=== PATIENT | female | born 1970 | race Caucasian/White ===

== ENCOUNTER 2021-07-17 15:17 | Day surgery (SDC) | payer MEDICARE ==
[2021-07-17] MEDS ORDERED: Depo-Medrol 40 MG/ML IM ONE (15:18)
[2021-07-17] MEDS ORDERED: LIDOCAINE HCL 2% 100 MG/5 ML IJ ONE (15:18)
[2021-07-17] MEDS ORDERED: Lactated Ringers 1,000 ML IV ONE (15:52)
[2021-07-17] MEDS ORDERED: DIPRIVAN 200 MG/20 ML IV ONE (16:36)
[2021-07-17] MEDS ORDERED: Ketamine HCl 50 MG/ML ONE (16:36)
[2021-07-17] MEDS ORDERED: MORPHINE SULFATE 2 MG INJ ONE (16:54)
--- NOTE | 2021-07-17 17:19 | XRAY ---
Indication: Bilateral L4-S1 MBB. Interpreted fluoroscopy provided for 15 seconds. Single digital spot image submitted for interpretation demonstrates posterior needle tips projecting over the expected left and right L4-S1 nerve roots. Correlate with intraoperative findings/report.
--- NOTE | 2021-07-17 17:21 | XRAY ---
15 seconds of fluoroscopy was used in surgery for a bilateral L4-S1 MBB.
== END 2021-07-17 17:07 | disposition home or self-care (01) ==
LOC: SDC-PAIN 15:17
PROVIDERS: ATTEND Psychiatry & Neurology Pain Medicine
DX: M47.816 Spondylosis without myelopathy or radiculopathy, lumbar region (principal); E11.9 Type 2 diabetes mellitus without complications; Z79.899 Other long term (current) drug therapy
CPT/HCPCS: 36415; 64493; 64494; 72020; 77002; 82947; 84702; J1030; J2270; J2704

== ENCOUNTER 2021-08-14 10:30 | Day surgery (SDC) | payer MEDICARE ==
[2021-08-14] MEDS ORDERED: Depo-Medrol 40 MG/ML IM ONE (10:31)
[2021-08-14] MEDS ORDERED: BUPIVACAINE 0.5% VIAL IJ ONE (10:31)
[2021-08-14] MEDS ORDERED: DIPRIVAN 200 MG/20 ML IV ONE (11:20)
[2021-08-14] MEDS ORDERED: Ketamine HCl 50 MG/ML ONE (12:25)
[2021-08-14] MEDS ORDERED: Lactated Ringers 1,000 ML IV ONE (16:13)
--- NOTE | 2021-08-15 11:20 | XRAY ---
17 seconds fluoroscopy time in surgery for intra-articular injection of the left knee.
--- NOTE | 2021-08-15 11:29 | XRAY ---
9 seconds fluoroscopy time in surgery for intra-articular injection of the right knee.
--- NOTE | 2021-08-15 12:13 | XRAY ---
Indication: Intra-articular right knee injection. Intra-operative fluoroscopy was provided for 9 seconds. A single digital spot image was submitted for interpretation demonstrates a needle tip projected over the right femur intercondylar notch. 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 A small amount of contrast has been injected for needle tip placement. Correlate with intraoperative findings/report.
--- NOTE | 2021-08-15 12:15 | XRAY ---
Indication: Intra-articular left knee injection. Intra-operative fluoroscopy was provided for 17 seconds. A single digital spot image was submitted for interpretation demonstrates a needle tip projected over the left femur intercondylar notch. There is a left total knee replacement. A small amount of contrast has been injected for needle tip placement. Correlate with intraoperative findings/report.
== END 2021-08-14 12:50 | disposition home or self-care (01) ==
LOC: SDC-PAIN 10:30
PROVIDERS: ATTEND Psychiatry & Neurology Pain Medicine
DX: M17.0 Bilateral primary osteoarthritis of knee (principal); E11.9 Type 2 diabetes mellitus without complications; Z79.899 Other long term (current) drug therapy
CPT/HCPCS: 20610; 73560; 77002; 82947; J1030; J2704; Q9966